=== PATIENT | male | born 1965 | race Hispanic/Latino ===

== ENCOUNTER 2021-12-13 12:00 | Inpatient (IN) | payer BC ==
[2021-12-10 11:39] LABS: BASOPHILS % (AUTO) 0.5 % (0.0-5.0); EOSINOPHILS % (AUTO) 2.2 % (0.0-8.0); HEMATOCRIT 43.6 % (42-54); LYMPHOCYTES % (AUTO) 32.7 % (21.0-51.0); MEAN CORPUSCULAR HGB CONC 34.6 g/dL (32.0-36.0); MEAN CORPUSCULAR VOLUME 89.5 fL (79-99); MONOCYTES % (AUTO) 8.4 % (3.0-13.0); PLATELET COUNT (AUTO) 268 K/uL (130-400); RED BLOOD CELL COUNT(AUTO) 4.87 MIL/uL (4.50-6.20); RED CELL DISTRIBUTION WIDTH 12.8 % (11.0-15.5); WHITE BLOOD COUNT (AUTO) 8.1 K/uL (4.8-10.8)
[2021-12-10 12:03] LABS: ALBUMIN 3.9 g/dL (3.5-5.0); CREATININE 1.1 mg/dL (0.5-1.5); POTASSIUM 3.5 mmol/L (3.5-5.1); TOTAL PROTEIN, SERUM 8.3 g/dL (6.0-8.3)
[~2021-12-13] VITALS: Ht 175.3 cm; Wt 177.8 kg
[2021-12-14 10:57] VITALS: BP 155/75
[2021-12-14] MEDS ORDERED: AMLO-258 PO (11:19)
[2021-12-14] MEDS ORDERED: VALS320T16 PO (11:19)
[2021-12-15] VITALS (23 sets, daily range): BP systolic 124–178; BP diastolic 63–84
[2021-12-15] MEDS ORDERED: METRONIDAZOLE 500MG/100ML BAG 100 ML ONE (07:06)
[2021-12-15] MEDS ORDERED: CEFAZOLIN SODIUM 1 GM VIAL ONE (07:06)
[2021-12-15] MEDS ORDERED: FAMOTIDINE 20MG VIAL IV ONE (07:33)
[2021-12-15] MEDS ORDERED: LIDOCAINE PF 100MG/5ML (2%) SYRINGE 5ML ONE (07:33)
[2021-12-15] MEDS ORDERED: PROPOFOL 10 MG/ML 20ML VIAL IV ONE (07:35)
[2021-12-15] MEDS ORDERED: SUCCINYLCHOLINE 200MG/10ML SYR ONE (07:35)
[2021-12-15] MEDS ORDERED: GLYCOPYRROLATE 1 MG/5 ML SYRINGE ONE (07:35)
[2021-12-15] MEDS ORDERED: ROCURONIUM 10MG/1ML SYR 10 MG/ML ML ONE ×2 (07:36→09:23)
[2021-12-15] MEDS ORDERED: MIDAZOLAM HCL 1 MG/ML 2ML VIAL ONE (07:36)
[2021-12-15] MEDS ORDERED: FENTANYL CITRATE PF 50 MCG/1 ML 2ML VIAL ONE ×3 (07:36→09:41)
[2021-12-15] MEDS ORDERED: ONDANSETRON 4MG INJ ONE ×2 (08:15→10:22)
[2021-12-15] MEDS ORDERED: BUPIVACAINE/PF 0.25% 30ML VIAL IJ ONE (08:20)
[2021-12-15] MEDS ORDERED: EPHEDRINE SULFATE 50 MG/ML AMPULE ONE (08:29)
[2021-12-15] MEDS ORDERED: NEOSTIGMINE 5MG/5ML SYR IV ONE (10:06)
[2021-12-15] MEDS ORDERED: KETOROLAC 30MG VIAL (30MG/ML) IV PRN (10:30)
[2021-12-15] MEDS ORDERED: MORPHINE 4 MG SYG IVP PRN (10:30)
[2021-12-15] MEDS ORDERED: PROCHLORPERAZINE 10MG/2ML INJ IV PRN (10:30)
[2021-12-15] MEDS: ENOXAPARIN SODIUM 40 MG/0.4 ML SYRINGE SQ SCH ×2 (10:30→21:12)
[2021-12-15] MEDS ORDERED: ONDANSETRON 4MG INJ IVP PRN (10:30)
[2021-12-15] MEDS: 1/2NS+20MEQ KCL/1000ML 1,000 ML IV SCH ×2 (12:05→18:27)
[2021-12-16] MEDS: HYDROCODONE/ACETAMINOPHEN 7.5/325 MG 15 ML UDCUP PO PRN ×2 (01:48→08:34)
[2021-12-16 03:53] VITALS: BP 153/80
[2021-12-16 07:30] VITALS: BP 179/93
[2021-12-16] MEDS: ENOXAPARIN SODIUM 40 MG/0.4 ML SYRINGE SQ SCH (08:34)
[2021-12-16] MEDS ORDERED: LOSARTAN 100 MG TABLET PO SCH (09:00)
[2021-12-16 11:00] VITALS: BP_SYST 142; BP_SYST 173; BP_DIAS 80; BP_DIAS 87
== END 2021-12-16 14:38 | disposition home or self-care (01) | DRG 621 ==
LOC: DAHIP 12-15 06:47 → 4CH 12-15 12:14 → EDSTATUS 12-15 14:33
PROVIDERS: ADMIT Surgery; ATTEND Surgery
PROC: 0DJ08ZZ Inspection of Upper Intestinal Tract, Via Natural or Artificial Opening Endoscopic (ICD-10-PCS; principal; 2021-12-15 08:40)
PROC: 0DB64Z3 Excision of Stomach, Percutaneous Endoscopic Approach, Vertical (ICD-10-PCS; 2021-12-15 08:40)
PROC: 0FB04ZX Excision of Liver, Percutaneous Endoscopic Approach, Diagnostic (ICD-10-PCS; 2021-12-15 08:40)
DX: E66.01 Morbid (severe) obesity due to excess calories (principal); Z68.43 Body mass index [BMI] 50.0-59.9, adult; Z20.822 Contact with and (suspected) exposure to COVID-19
CPT/HCPCS: 36415; 43235; 80053; 85025; 86850; 86900; 86901; 87426; 93005; G0378; J0330; J0690; J1650; J1885; J2001; J2250; J2270; J2405; J2704; J2710; J3010; J3480; J3490; J7030; J7120